=== PATIENT | male | born 1955 | race Caucasian/White ===

== ENCOUNTER 2023-08-16 07:53 | Day surgery (SDC) | payer MEDICARE ==
[2023-08-16] MEDS ORDERED: Propofol 200 MG/20 ML SDV ONE (08:58)
[2023-08-16] MEDS ORDERED: Midazolam 1 MG/ML 2 ML SDV ONE (08:58)
[2023-08-16] MEDS ORDERED: fentaNYL 50 MCG/ML SDV ONE (08:58)
[2023-08-16] MEDS ORDERED: Sodium Chloride 0.9% 1,000 ML IV SCH (09:00)
== END 2023-08-16 12:01 | disposition home or self-care (01) ==
LOC: JP.SDS 07:53
PROVIDERS: ATTEND Surgery
DX: Z12.11 Encounter for screening for malignant neoplasm of colon (principal); I10 Essential (primary) hypertension; Z88.8 Allergy status to other drugs, medicaments and biological substances
CPT/HCPCS: G0121; J2250; J2704; J3010; J7030